=== PATIENT | female | born 1950 | race Asian ===

== ENCOUNTER 2016-07-28 10:01 | Outpatient (CLI) | payer OTHER ==
--- NOTE | 2016-07-28 12:38 | DIAGNOSTIC IMAGING REPORT ---
PROCEDURE: XR UPPER GI WITH AIR INDICATION: REFLUX DISEASE TECHNIQUE: Real time fluoroscopy was used on the upper GI system. Total fluoro time 2.0 minutes. Cumulative dose 1129.26 mGy 58 images obtained including cine imaging and last image hold screen capture images. COMPARISON: None. FINDINGS: Normal swallowing and esophageal peristalsis. Small hiatal hernia with moderate spontaneous gastroesophageal reflux. No evidence of esophagitis or stricture. Normal gastric folds, duodenal bulb and duodenal sweep. IMPRESSION: 1. Small hiatal hernia with moderate spontaneous gastroesophageal reflux
== END 2016-07-28 23:00 ==
LOC: XR SRH 10:01
DX: K21.0 Gastro-esophageal reflux disease with esophagitis (principal); K44.9 Diaphragmatic hernia without obstruction or gangrene